=== PATIENT | male | born 1930 | race Caucasian/White ===

== ENCOUNTER → 2016-07-26 | Outpatient (CLI) | payer MEDICARE ==
[~2016-07-26] MED LIST: ACETAMINOPHEN650 M1 PO; ADVAIR 250-501 EACH INH; ADVAIR 2501 DISK W/D PO; AMLODIPINE BES2.5 MG PO; ASPIRIN81 M2 PO; ASPIRINEC PO; B100 BALANCE1 TAB.S1 PO; BENADRYL PO; BENADRYL25 M1 PO; CARAFATE PO; CIALIS PO; COMBIVENT U/D3 ML INH; CREON DR 24,001 EACH PO; FLAGYL PO; FLEXERIL10 M1 PO; FLOMAX0.4 M1 PO; LANTUS100 U/ML SUBQ; LEVAQUIN750 MG PO; NEXIUM PO; NIACIN1 GM MC; NIACIN50 MG PO; NORVASC2.5 MG PO; NOVOLOG100 UNITS/ INJ; OMNICEF300 MG PO; PRILOSEC PO; PROBIOTIC1 EAC1 PO; SIMVASTATIN10 MG PO; VIOKASE 8 TABL468 MG PO; ZITHROMAX1 G/PKT PO
[2016-07-26 13:34] LABS: BLOOD UREA NITROGEN 17 mg/dL (9-23); BUN/CREATININE RATIO 15.45; CALCIUM SERUM 9.7 mg/dL (8.4-10.2); CARBON DIOXIDE 31 mmol/L (22-31); CHLORIDE 100 mmol/L (100-111); CREATININE SERUM 1.1 mg/dL (0.6-1.4); GLOM FILT RATE Estimated ABOVE60 mL/min (>60); GLUCOSE FASTING 121 mg/dL (70-110); SODIUM 140 mmol/L (135-145)
== END | disposition home or self-care (01) ==
LOC: SLAB 12:30
PROVIDERS: Internal Medicine Endocrinology, Diabetes & Metabolism
DX: E16.2 Hypoglycemia, unspecified (principal); E08.8 Diabetes mellitus due to underlying condition with unspecified complications; Z79.4 Long term (current) use of insulin; I10 Essential (primary) hypertension
CPT/HCPCS: 36415; 80048; 83036

== ENCOUNTER → 2016-11-24 | Outpatient (CLI) | payer MEDICARE ==
[2016-11-24 08:53] LABS: ALBUMIN SERUM 4.1 g/dL (3.5-5.0); BILIRUBIN,TOTAL 0.8 mg/dL (0.2-2.0); BUN/CREATININE RATIO 13.63; CALCIUM SERUM 9.3 mg/dL (8.4-10.2); CREATININE SERUM 1.1 mg/dL (0.6-1.4); GLOM FILT RATE Estimated 60.5 mL/min (>60); POTASSIUM 3.8 mmol/L (3.5-5.1); PROTEIN TOTAL SERUM 7.3 g/dL (6.0-8.3)
[2016-11-24 09:09] LABS: HEMATOCRIT 38.9 % (38.0-50.0); MEAN CELL VOLUME 95.5 FL (83-96); MEAN CORPUSCULAR HGB CONC 33.5 g/dL (30-36); MEAN PLATELET VOLUME 8.7 FL (6.5-11.5); RED BLOOD COUNT 4.08 X10e (3.90-5.60); RED CELL DISTRIBUTION WIDTH 14.2 % (11.0-15.5); WHITE BLOOD COUNT 9.5 X10e3 (4.0-10.5)
== END | disposition home or self-care (01) ==
LOC: SLAB 08:00
PROVIDERS: Internal Medicine Endocrinology, Diabetes & Metabolism
DX: E16.2 Hypoglycemia, unspecified (principal); I10 Essential (primary) hypertension; E08.8 Diabetes mellitus due to underlying condition with unspecified complications; G47.00 Insomnia, unspecified; Z79.4 Long term (current) use of insulin
CPT/HCPCS: 36415; 80053; 83036; 85027